=== PATIENT | female | born 1950 | race Caucasian/White ===

== ENCOUNTER 2025-03-06 14:21 | Emergency (ER) | payer MEDICARE, SELFPAY ==
[2025-03-06 14:25] VITALS: BP 180/68; BMI 30.2
--- NOTE | 2025-03-06 14:37 | ED.GENMED ---
History of Present Illness
<Quita Verduzco MD, Resident - Last Filed: 03/06/25 16:00>
General
Chief Complaint: Fainting/Passed Out
Source: patient
Exam Limitations: none
Time Seen by Provider: 03/06/25 14:23
Nursing documentation reviewed up to this point in time: agreed with
History of Present Illness
History of Present Illness:
74yo F with a hx of arrhythmia (s/p loop monitor) & HTN who presents following episode of syncope.
Pt was in her usual state of health shopping at the grocery store when she suddenly felt 'weird.' The sensation was similar to other times when she felt 'off' but that resolved within seconds. This time, she lost consciousness and woke up on the
floor. Denies hitting her head or falling hard, because she was slumped in a corner against two motley. Denies palpitations, blurry vision, vision changes, or dizziness preceding LOC. Endorses feeling hot, but not clammy or diaphoretic. After the
episode, felt shocked but quickly returned to baseline mental status and came to ED. Denies any feelings of vertigo. Denies CP. Once she woke up, she felt that her heart was pounding and she felt short of breath, similar to a panic attack. Denies
any focal weakness or numbness. States that she sometimes feels intermittently lightheaded after standing up out of bed. Denies any recent changes to medications or new medications. Was started on eliquis and a new anti-HTN medication within the
last year. She follows with a tube room supervisor for an arrhythmia (not sure which), for which she had an implanted loop recorder, which has since been removed. She said her tube room supervisor had talked about her needing a pacemaker eventually, but this was
delayed due to her never passing out. States that her tube room supervisor is always asking her if she has passed out. Endorses a few episodes of feeling transiently fatigued/globally weak and needing to sit down and rest over the last few months.
Partner at bedside says that sometimes she seems out of breath. Follows with cardiology at [place]. Believes she has paroxysmal a fib and some condition of 'electric paths degrading' that might need pacemaker.
Past History
<Quita Verduzco MD, Resident - Last Filed: 03/06/25 16:00>
Past History
ED Past Medical History: Arrthythmia and Hypercholesterolemia
ED Past Surgical History: None
Patient has exhibited threatening behavior?: No
Social History
Tobacco: Non-smoker
Alcohol: Occasional (wine on the weekends)
Drug: None
Review of Systems
<Quita Verduzco MD, Resident - Last Filed: 03/06/25 16:00>
Review of Systems
All Other Systems: ROS reviewed and negative except as documented in HPI and ROS
Constitutional: Reports fatigue
EENT: Reports no symptoms
Respiratory: Reports no symptoms
Cardiac: Reports palpitations and syncope
ABD/GI: Reports no symptoms
: Reports urgency
Musculoskeletal: Reports no symptoms
Skin: Reports no symptoms
Neurological: Reports no symptoms
Psychiatric: Reports no symptoms
Phy Exam
<Quita Verduzco MD, Resident - Last Filed: 03/06/25 16:00>
General Physical Exam
General Presentation: well appearing
General age: appears stated age
General Skin: warm and dry
General Habitus: normal
General Mental: alert
General Hydration: appears well hydrated
Cardiovascular Exam
Cardiovascular Exam: regular rate/rhythm and no edema
Heart Sounds: normal
Pulmonary Exam
Pulmonary Exam: no respiratory distress
Gastrointestinal Exam
Gastrointestinal Exam: non tender, soft and non distended
Neurological Exam
Neurological Exam: alert, oriented x3 and no motor deficits
Musculoskeletal Exam
Musculoskeletal Exam: no edema
Skin Exam
Skin Exam: normal color and warm/dry
Psychiatric Exam
Psychiatric Exam: normal mood/affect
Course
<Quita Verduzco MD, Resident - Last Filed: 03/06/25 16:00>
Orders/Labs/Results
Orders:
Orders
03/06/25 14:37
Electrocardiogram (*1) Urgent
Reason for Study: Vertigo / Dizzy
EKG- Treatment ONCE
03/06/25 14:43
CMP [Comprehensive Metabolic Panel] Urgent
Complete Blood Count/With Diff Urgent
PT/INR [Prothrombin Time] Urgent
PTT Urgent
Troponin I Urgent
Urinalysis Reflex To Culture Urgent
Date Specimen was Collected: 03/06/25
Time Specimen was Collected: 14:37
Urine Microscopic Reflex Cult Urgent
Urine Culture Urgent
TEE Source: U
Specimen Description:
Date Specimen was Collected: 03/06/25
Time Specimen was Collected: 14:37
03/06/25 15:29
Add On- LAB Stat
Tests Added?: NT-proBNP
Abnormal Lab Results
03/06/25
14:43
WBC 4.3 L 10^3/uL
(4.8-10.8)
MCHC 31.9 L g/dL
(33.0-37.0)
Creatinine 0.5 L mg/dL
(0.6-1.0)
Glucose 106 H mg/dl
(70-99)
Leukocyte Esterase Rfl 1+ A
(Negative)
Urine Bacteria (Reflex) Few A
(Negative)
03/06/25 14:43
03/06/25 14:43
Vital Signs
Initial and Last Documented VS:
Initial Vital Signs
Temp Pulse Resp BP Pulse Ox
36.7 C 64 16 180/68 98
03/06/25 14:25 03/06/25 14:25 03/06/25 14:25 03/06/25 14:25 03/06/25 14:25
Last Documented Vital Signs
Temp Pulse Resp BP Pulse Ox
36.7 C 64 16 180/68 98
03/06/25 14:25 03/06/25 14:25 03/06/25 14:25 03/06/25 14:25 03/06/25 14:58
<Richy Wong Payton, DO - Last Filed: 03/06/25 16:01>
Orders/Labs/Results
Orders:
Orders
03/06/25 14:37
Electrocardiogram (*1) Urgent
Reason for Study: Vertigo / Dizzy
EKG- Treatment ONCE
03/06/25 14:43
CMP [Comprehensive Metabolic Panel] Urgent
Complete Blood Count/With Diff Urgent
PT/INR [Prothrombin Time] Urgent
PTT Urgent
Troponin I Urgent
Urinalysis Reflex To Culture Urgent
Date Specimen was Collected: 03/06/25
Time Specimen was Collected: 14:37
Urine Microscopic Reflex Cult Urgent
Urine Culture Urgent
TEE Source: U
Specimen Description:
Date Specimen was Collected: 03/06/25
Time Specimen was Collected: 14:37
03/06/25 15:29
Add On- LAB Stat
Tests Added?: NT-proBNP
Abnormal Lab Results
03/06/25
14:43
WBC 4.3 L 10^3/uL
(4.8-10.8)
MCHC 31.9 L g/dL
(33.0-37.0)
Creatinine 0.5 L mg/dL
(0.6-1.0)
Glucose 106 H mg/dl
(70-99)
Leukocyte Esterase Rfl 1+ A
(Negative)
Urine Bacteria (Reflex) Few A
(Negative)
03/06/25 14:43
03/06/25 14:43
Vital Signs
Initial and Last Documented VS:
Initial Vital Signs
Temp Pulse Resp BP Pulse Ox
36.7 C 64 16 180/68 98
03/06/25 14:25 03/06/25 14:25 03/06/25 14:25 03/06/25 14:25 03/06/25 14:25
Last Documented Vital Signs
Temp Pulse Resp BP Pulse Ox
36.7 C 64 16 180/68 98
03/06/25 14:25 03/06/25 14:25 03/06/25 14:25 03/06/25 14:25 03/06/25 14:58
<Quita Verduzco MD, Resident - Last Filed: 03/06/25 16:00>
MDM/Problems Addressed
Differential Diagnosis Includes:
Cardiogenic syncope in s/o known arrhythmia
Vasovagal syncope
Orthostatic syncope
Unlikely - seizure
MDM/Problems Addressed:
- EKG
- Troponin
- CBC, CMP
- proBNP
- Likely f/u with tube room supervisor for pacemaker implantation - will provide [facility] referral
<Quita Verduzco MD, Resident - Last Filed: 03/06/25 16:00>
*Pulse Oximetry
SaO2: 98
Oxygen Mode of Delivery: Room air
Patient hypoxic: no
*Critical Care Note
Total Time (30-74mins, 75-104mins- exclusive of procedures): Not Applicable
<Quita Verduzco MD, Resident - Last Filed: 03/06/25 16:00>
Update Note
Update Note:
3:45pm
EKG with bifascicular block, unchanged from prior EKG 2021
ED Attending Note
<Quita Verduzco MD, Resident - Last Filed: 03/06/25 16:00>
-
Portions of this chart may have been created with voice recognition software.� Occasional wrong word or��sound alike� substitutions may have occurred due to the inherent limitations of voice recognition software.
<Richy Cain DO - Last Filed: 03/06/25 16:01>
ED Attending Note
Patient seen and examined by attending physician: Yes
I performed the substantive portion of visit, reviewed & personally made and approve the management plan that is documented in note by myself or MAMTA.: Yes
ED Attending Note:
I evaluated the patient bedside. The patient had a syncopal event today. Currently she has no symptoms. She does not believe tube room supervisor at [place] without a clear diagnosis but is on Eliquis for history of paroxysmal A-fib. She is currently
in sinus rhythm. She denies any head trauma. Basic blood work unremarkable. EKG shows a sinus rhythm with bifascicular block which is old. The patient is remained in a sinus rhythm throughout her stay in the emergency department. Room air sats
at time discharge 100%.
Discharge Plan
Departure
Prescriptions:
No Action
aspirin 325 MG tablet
325 mg PO DAILY
hydrochlorothiazide 12.5 MG tablet
12.5 mg PO DAILY
Rosuvastatin Calcium
1 tab PO DAILY
Patient Comments:
pt unsure of doseage
Vitamin D3:
1 tab PO DAILY
Patient Comments:
pt unsure of doseage
Referrals:
Facundo Willingham DO [Family Provider, Family Practice]
Medina Hdez DO [Active, Cardiology] - Follow up in 1 week
Interventions
Interventions:
*Risk Screen - Suicide Last Done: 03/06/25 14:25
*General Assessment Last Done: 03/06/25 14:25
*Neglect/Abuse Screening Last Done: 03/06/25 14:25
*ED COVID-19 Vaccine History Last Done: 03/06/25 14:25
*ED Influenza Vaccine History Last Done: 03/06/25 14:25
[facility] Fall Risk Assessment Tool Last Done: 03/06/25 14:25
ED- Cardiac Assessment Last Done: 03/06/25 14:25
ED- Neurological Assessment Last Done: 03/06/25 14:25
Discharge Date and Time
Print Language: HEBREW
[2025-03-06 14:57] LABS: Hematocrit 42.7 % (37.0-47.0); Hemoglobin 13.6 g/dL (12.0-16.0); Mean Corp Hgb Conc. 31.9 g/dL (33.0-37.0); Mean Corpuscular Volume 93.0 fL (81.0-99.0); Nucleated Red Blood Cells % 0 %; Platelet Count 246 10^3/uL (130-400); Red Cell Dist. Width 13.4 % (11.5-14.5)
[2025-03-06 15:00] VITALS: BP 146/57
[2025-03-06 15:05] LABS: Urine Character Clear (Clear)
[2025-03-06 15:08] LABS: INR 1.11; PT 14.5 Sec (11.4-14.6)
[2025-03-06 15:09] LABS: ALT (SGPT) 21 U/L (0-35); APTT 29.7 Sec (23.4-35.0); AST (SGOT) 22 U/L (14-36); Albumin 4.8 g/dl (3.5-5.0); Alkaline Phosphatase 75 U/L (38-126); Blood Urea Nitrogen 10 mg/dl (7-17); Calcium 9.6 mg/dl (8.4-10.2); Carbon Dioxide 29 mmol/L (22-30); Chloride 104 mmol/L (98-107); Estimated Creatinine Clearance 83 ml/min; Glucose 106 mg/dl (70-99); Potassium 3.6 mmol/L (3.5-5.1); Sodium 137 mmol/L (135-145); Total Protein 7.6 g/dl (6.3-8.2); eGFR > 60.00
[2025-03-06 15:11] LABS: Urine Red Blood Cell 0-2 /HPF (0-2)
[2025-03-06 15:20] LABS: Troponin I < 0.012 ng/ml
[2025-03-06 16:00] VITALS: BP 142/55
== END 2025-03-06 16:44 | disposition home or self-care (01) ==
LOC: EMR 14:21
PROVIDERS: EMERGENCY PHYSICIAN Emergency Medicine; FAMILY PHYSICIAN Family Medicine
DX: R55 Syncope and collapse (principal); I10 Essential (primary) hypertension; E78.00 Pure hypercholesterolemia, unspecified; I48.0 Paroxysmal atrial fibrillation; Z79.01 Long term (current) use of anticoagulants
CPT/HCPCS: 99284; 80053; 81003; 81015; 83880; 84484; 85025; 85610; 85730; 87086; 93005